=== PATIENT | female | born 1995 | race African-American/Black ===

== ENCOUNTER 2022-08-15 21:35 | Inpatient (IN) ==
[2022-08-15] MEDS ORDERED: TRANEXAMIC ACID 1,000 MG in SODIUM CHLORIDE 0.9% 100 ML IV PRN (22:28)
[2022-08-15] MEDS ORDERED: miSOPROStoL 200 MCG TABLET RECTAL PRN (22:28)
[2022-08-15] MEDS ORDERED: CARBOPROST TROMETHAMINE 250 MCG/ML AMP IM PRN (22:28)
[2022-08-15] MEDS ORDERED: LACTATED RINGERS 500 ML IV PRN (22:28)
[2022-08-15] MEDS ORDERED: METHYLERGONOVINE 0.2 MG/1 ML AMP IM PRN (22:28)
[2022-08-15] MEDS ORDERED: LACTATED RINGERS 250 ML IV ONE (22:28)
[2022-08-15] MEDS ORDERED: OXYTOCIN/LR 20 UNIT/1,000 ML BAG IV ONE (22:28)
[2022-08-15 22:44] LABS: Basophils % 0.2 % (0.0-0.8); Eosinophils # 0.2 10*3/uL (0.0-0.87); Hemoglobin 8.8 GM/DL (12.0-16.0); Immature Granulocytes % 0.4 %; Immature Granulocytes Absolute 0.05 #; Lymphocytes # 4.7 10*3/uL (1.4-4.0); Lymphocytes % 38.6 % (21.3-54.2); Mean Corpuscular HGB Conc 31.4 GM/DL (32-36); Mean Corpuscular Volume 76.3 FL (87-102); Mean Platelet Volume 11.3 FL (9.6-12.0); Monocytes # 1.1 10*3/uL (0.11-0.8); Monocytes % 9.1 % (1.7-12.7); NRBC # 0.02 10*3/uL; Neutrophils % 49.7 % (38.7-73.9); Platelet Count 292 T/CUMM (130-400); Red Blood Count 3.67 MC/CUMM (3.8-5.5); Red Cell Distribution Width 15.5 % (9.3-17.3); White Blood Count 12.1 T/CUMM (4-12)
[2022-08-16 00:13] LABS: RPR Confirm - Less than 1 yr REACTIVE (Nonreactive)
[2022-08-16] MEDS: BUTORPHANOL 2 MG/ML VIAL IV PRN ×2 (02:08→04:50)
[2022-08-16] MEDS: ONDANSETRON 4 MG/2 ML VIAL IV PRN ×2 (02:08→21:55)
[2022-08-16] MEDS: LACTATED RINGERS 1,000 ML IV SCH ×4 (04:45→16:27)
[2022-08-16] MEDS: OXYTOCIN/LR 20 UNIT/1,000 ML BAG IV SCH (04:46)
[2022-08-16] MEDS ORDERED: MEPERIDINE 50 MG/1 ML VIAL IM PRN (07:19)
[2022-08-16] MEDS ORDERED: BUTORPHANOL 1 MG/ML VIAL IV PRN (07:19)
[2022-08-16] MEDS ORDERED: BUTORPHANOL 2 MG/ML VIAL IV PRN (07:19)
[2022-08-16] MEDS ORDERED: CITRIC ACID/SODIUM CITRATE 30 ML UDCUP PO ONE (07:34)
[2022-08-16] MEDS ORDERED: ePHEDrine 50 MG/ML VIAL IV PRN (07:34)
[2022-08-16] MEDS ORDERED: PROMETHAZINE 25 MG/1 ML VIAL IM PRN (07:34)
[2022-08-16] MEDS ORDERED: NALOXONE 0.4 MG/ML VIAL IV PRN (07:34)
[2022-08-16] MEDS ORDERED: diphenhydrAMINE 50 MG/1 ML VIAL IV PRN ×2 (07:34)
[2022-08-16] MEDS ORDERED: hydrOXYzine HCL 25 MG/1 ML VIAL IM PRN (07:34)
[2022-08-16] MEDS ORDERED: FAMOTIDINE 20 MG/2 ML VIAL IV ONE (07:34)
[2022-08-16] MEDS: fentaNYL 2 MCG/ROPIV 0.2% EPID 100 ML EPIDURAL SCH ×3 (09:34→22:46)
[2022-08-16 11:32] LABS: Mucus,Urine Moderate /LPF (Occasional); RBC,Urine 1 /HPF (0-4); Squamous Epithelial Cell,Urine Occasional /HPF (0-10)
[2022-08-16 11:33] LABS: Bilirubin,Urine Small mg/dL (Negative); Blood, Urine Negative (Negative); Glucose,Urine (UA) Negative (Negative); Ketones,Urine 80 mg/dL (Negative); Nitrite,Urine Negative (Negative); Protein,Urine 30 mg/dL (Negative); Urine Appearance Clear (Clear); Urine Color Yellow (Yellow); Urine Specific Gravity > 1.030 (1.001-1.035); Urine Urobilinogen 0.2 eU/dL (<2.0); Urine pH 5.5 (4.5-8.0)
[2022-08-17] MEDS: fentaNYL 2 MCG/ROPIV 0.2% EPID 100 ML EPIDURAL SCH (04:46)
[2022-08-17] MEDS: OXYTOCIN/LR 20 UNIT/1,000 ML BAG IV SCH (07:40)
[2022-08-17] MEDS ORDERED: diphenhydrAMINE 50 MG/1 ML VIAL IM ONE (08:39)
[2022-08-17 10:56] LABS: Cord Arterial Blood HCO3 13.7 MMOL/L
[2022-08-17 10:59] LABS: Cord Venous Blood PCO2 34.9 MMHG; Cord Venous Blood PO2 27.1
[2022-08-17] MEDS ORDERED: IBUPROFEN 800 MG TABLET PO ONE (11:48)
[2022-08-17] MEDS ORDERED: HYDROCORTISONE 2.5% RECTAL CREAM 30 GM TUBE TOP PRN (13:18)
[2022-08-17] MEDS ORDERED: BENZOCAINE 20%/MENTHOL 0.5% SPRAY 56 GM CAN TOP PRN (13:18)
[2022-08-17] MEDS ORDERED: ACETAMINOPHEN 325 MG TABLET PO PRN (13:18)
[2022-08-17] MEDS ORDERED: DIPH/TET/ACEL PERT BOOSTER VACCINE 0.5 ML VIAL IM ONE (13:18)
[2022-08-17] MEDS ORDERED: WITCH HAZEL PADS 100/JAR TOP PRN (13:18)
[2022-08-17] MEDS ORDERED: OXYTOCIN/LR 20 UNIT/1,000 ML BAG IV ONE (13:18)
[2022-08-17] MEDS ORDERED: RHO(D) IMMUNE GLOBULIN 300 MCG SYRINGE IM ONE (13:18)
[2022-08-17] MEDS ORDERED: LANOLIN 50% CREAM 0.3 OZ TUBE TOP PRN (13:18)
[2022-08-17] MEDS ORDERED: BISACODYL 10 MG SUPP RECTAL PRN (13:18)
[2022-08-17] MEDS ORDERED: MEASLES/MUMPS/RUBELLA VACCINE 0.5 ML VIAL SUBCUT ONE (13:18)
[2022-08-17] MEDS: oxyCODONE/ACETAMINOPHEN 5-325 MG TABLET PO PRN (14:49)
[2022-08-17] MEDS ORDERED: FERROUS SULFATE 325 MG TABLET PO SCH (21:00)
[2022-08-17] MEDS: DOCUSATE SODIUM 100 MG CAPSULE PO SCH (21:24)
[2022-08-17] MEDS: IBUPROFEN 800 MG TABLET PO PRN (21:24)
[2022-08-18 06:32] LABS: Basophils % 0.2 % (0.0-0.8); Eosinophils # 0.2 10*3/uL (0.0-0.87); Eosinophils % 0.6 % (0.00-10.9); Hematocrit 22.7 VOL% (35.7-47.0); Hemoglobin 7.1 GM/DL (12.0-16.0); Immature Granulocytes % 0.8 %; Lymphocytes # 4.2 10*3/uL (1.4-4.0); Lymphocytes % 16.5 % (21.3-54.2); Mean Corpuscular HGB Conc 31.3 GM/DL (32-36); Mean Platelet Volume 11.2 FL (9.6-12.0); Monocytes # 1.6 10*3/uL (0.11-0.8); Monocytes % 6.3 % (1.7-12.7); NRBC # 0.02 10*3/uL; Neutrophils % 75.6 % (38.7-73.9); Platelet Count 261 T/CUMM (130-400); Red Blood Count 2.91 MC/CUMM (3.8-5.5); Red Cell Distribution Width 15.8 % (9.3-17.3); White Blood Count 25.4 T/CUMM (4-12)
[2022-08-18 07:23] LABS: Band Neutrophils 3 % (0-10); Hypochromia 1+; Lymphocytes 17 % (20-55); Total Cells Counted 100
[2022-08-18 07:24] LABS: Microcytosis 1+; Ovalocytes Slight; Platelet Estimate Normal; Polychromasia Slight
[2022-08-18] MEDS: FERROUS SULFATE 325 MG TABLET PO SCH ×3 (08:22→21:04)
[2022-08-18] MEDS: DOCUSATE SODIUM 100 MG CAPSULE PO SCH ×2 (08:22→21:04)
[2022-08-18] MEDS: oxyCODONE/ACETAMINOPHEN 5-325 MG TABLET PO PRN ×3 (09:21→19:44)
[2022-08-18] MEDS: IBUPROFEN 800 MG TABLET PO PRN (19:42)
[2022-08-19] MEDS: DOCUSATE SODIUM 100 MG CAPSULE PO SCH (08:28)
[2022-08-19] MEDS: FERROUS SULFATE 325 MG TABLET PO SCH (08:29)
[2022-08-19 08:49] VITALS: BP 118/65
== END 2022-08-19 12:10 | disposition home or self-care (01) | DRG 542 ==
LOC: N.LD 21:35 → N.OB 08-17 13:16
PROVIDERS: ADMIT Obstetrics & Gynecology; ATTEND Obstetrics & Gynecology